=== PATIENT | male | born 1955 | race Caucasian/White ===

== ENCOUNTER 2020-02-06 14:29 | Emergency (ER) | payer OTHER, MEDICAID ==
[~2020-02-06] VITALS: Ht 157.5 cm; Wt 59.0 kg
--- NOTE | 2020-02-06 14:29 | NUR ---
BROUGHT IN BY [facility], PLACED IN BED #3 AND TRIAGED. REPORT GIVEN TO NELIDA
[2020-02-06 14:30] VITALS: BP_SYST 118
[2020-02-06] MEDS ORDERED: levETIRAcetam 500 MG IV PREMIX 100 ML IV ONE (15:15)
--- NOTE | 2020-02-06 15:31 | NUR ---
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
[2020-02-06 15:35] LABS: BASOPHILS % (AUTO) 1.4 % (0.0-2.0); EOSINOPHILS % (AUTO) 0.2 % (0.0-4.0); HEMATOCRIT 32.6 % (36-54); HEMOGLOBIN 11.2 g/dL (14.0-18.0); LYMPHOCYTES # (AUTO) 0.3 K/uL (1.0-5.5); LYMPHOCYTES % (AUTO) 8.6 % (20.5-51.5); MEAN CORPUSCULAR HEMOGLOBIN 34 pg (27-31); MEAN CORPUSCULAR HGB CONC 34 % (32-36); MEAN CORPUSCULAR VOLUME 98 fL (79.0-98.0); MONOCYTES # (AUTO) 0.4 K/uL (0.0-1.0); MONOCYTES % (AUTO) 12.7 % (1.7-9.3); NEUTROPHILS # (AUTO) 2.4 K/uL (1.8-7.7); NEUTROPHILS % (AUTO) 77.1 % (40.0-70.0); PLATELET COUNT (AUTO) 213 K/uL (130-430); RED BLOOD CELL COUNT(AUTO) 3.35 MIL/uL (4.2-6.2); RED CELL DISTRIBUTION WIDTH 15.8 % (9.0-15.0); WHITE BLOOD COUNT (AUTO) 3.1 K/uL (4.8-10.8)
--- NOTE | 2020-02-06 15:53 | NUR ---
IV PLACED RAC AND MEDICATION INFUSION; PATIENT CURRENTLY COOPERATIVE
[2020-02-06 16:00] LABS: CALCIUM 8.7 mg/dL (8.4-11.0); CHLORIDE 98 mmol/L (98-107); CREATININE 1.14 mg/dL (0.55-1.30); GLUCOSE 68 mg/dL (70-99); POTASSIUM 4.1 mmol/L (3.5-5.1); SODIUM SERUM 131 mmol/L (136-145); UREA NITROGEN, BLOOD 19 mg/dL (8-21)
[2020-02-06 16:03] LABS: ANION GAP < 3 (5-15); GFR AFRICAN AMERICAN 83 mL/min (>90)
[2020-02-06 16:06] LABS: ALANINE AMINOTRANSFERASE 34 U/L (12-78); ALBUMIN 2.5 g/dL (3.4-4.8); ASPARTATE AMINOTRANSFERASE 33 U/L (10-37); TOTAL BILIRUBIN 0.3 mg/dL (0.0-1.0)
--- NOTE | 2020-02-06 16:38 | NUR ---
PREPARATIONS TO DISCHARGE PATIENT; REPORT CALLED TO [employer] AND [facility] CALLED FOR DELIVERY; ETA 30 MIN; PATIENT REMAINS SEDATE AND UNCHANGED; NO FURTHER SEIZURE ACTIVITY
[2020-02-06 18:17] VITALS: BP_SYST 137
--- NOTE | 2020-02-06 18:17 | NUR ---
DPatient given written and verbal discharge instructions and verbalizes understanding. ER MD discussed with patient the results and treatment provided. Patient in stable condition. ID arm band removed. IV catheter removed intact and dressing applied, no active bleeding. Rx ofNONE given. Patient educated on pain management and to follow up with PMD. Pain Scale . Opportunity for questions provided and answered. Medication side effect fact sheet provided.
== END 2020-02-06 18:16 | disposition home or self-care (01) ==
LOC: SED 14:29 → EDBD 14:29 → SED 18:16
DX: R56.9 Unspecified convulsions (principal); I10 Essential (primary) hypertension; N28.9 Disorder of kidney and ureter, unspecified; Z86.73 Personal history of transient ischemic attack (TIA), and cerebral infarction without residual deficits; Z88.6 Allergy status to analgesic agent; Z88.0 Allergy status to penicillin
CPT/HCPCS: 36415; 80053; 85025; 96365; 99284; J1953